=== PATIENT | female | born 1975 | race African-American/Black ===

== ENCOUNTER 2021-12-15 09:44 | Emergency (ER) | payer BC ==
[~2021-12-15] VITALS: Ht 165.1 cm; Wt 81.1 kg
[~2021-12-15 09:44] MED LIST: ACET325T9 PO; CLIN150C16 PO; HYDR-3165 PO; IBUP-1390 PO; SULF1TAB24 PO; TRAM100T10 PO
[2021-12-15] MEDS: IV NORMAL SALINE 1,000ML 1,000 ML IV ONE (10:30)
[2021-12-15] MEDS ORDERED: ASPIRIN CHEWABLE 81 MG TABLET. ONE (10:30)
--- NOTE | 2021-12-15 10:30 | EKG ---
[address] [address] Test Date: 2021-12-15 Test Time: 10:03:08 Pat Name: HOA GEIGER Department: Room: Gender: F Inspector Material Disposition: KERRY : 1975 Requested By: DENISE MOREJON Order Number: [id number] Reading MD: Emmanuel Umanzor Measurements Intervals [place] Rate: 58 P: [place]: QRS: 60 QRSD: 92 T: -4 QT: 426 QTc: 422 Interpretive Statements COMPLETE HEART BLOCK JUNCTIONAL ESCAPE RHYTHM Electronically Signed On 12-16-2021 18:40:29 [employer] by Emmanuel Umanzor
--- NOTE | 2021-12-15 10:32 | PHYS DOC ---
Past History Past Medical History: Fibromyalgia, Other Past Surgical History: Other Smoking: Less than 1pk/day Alcohol Use: Rarely Drug Use: None Adult General Chief Complaint Chief Complaint: CHEST PAIN HPI HPI The patient is a 46-year-old female with a history of hypertension and former tobacco use. She is otherwise healthy. She presents for evaluation of nausea, lightheadedness, shortness of breath and intermittent nonexertional nonpleuritic midsternal chest pain, all with onset upon awakening from sleep this morning. No fevers, upper respiratory congestion/rhinorrhea, cough, sore throat, abdominal pain of any kind, flank pain of any kind, midline back pain, dysuria, hematuria, polyuria or oliguria, changes in bowel habits. Patient is alert and appropriately interactive but ill-appearing, dry heaving upon initial evaluation here in the emergency department. Telemetry monitoring and initial triage EKG demonstrate a pattern of dropped beats consistent with a second-degree type II atrioventricular block. Patient is intermittently bradycardic with this but vital signs are otherwise appropriate. Review of Systems Review of Systems A 12 point review of systems was completed and was negative except where noted in HPI above. Current Medications Current Medications Current Medications Medications (Trade) Dose Ordered Sig/Marcia Start Time Stop Time Status Last Admin Dose Admin Aspirin (Aspirin Chewable) 324 mg 1X ONCE 12/15/21 10:15 12/15/21 10:16 UNV Ondansetron HCl (Zofran) 4 mg 1X ONCE 12/15/21 10:15 12/15/21 10:16 UNV Sodium Chloride 1,000 ml @ 1,000 mls/hr 1X ONCE 12/15/21 10:15 12/15/21 11:14 UNV Allergies Allergies Allergies Coded Allergies Type Severity Reaction Last Updated Verified No Known Drug Allergies 03/27/14 No Physical Exam Physical Exam 46-year-old female appearing nontoxic and in no acute distress. Head is normocephalic and atraumatic. Neck is supple and nontender. Oropharynx is moist. Lungs are clear to auscultation at all stations. There is a normal S1 and S2 without rubs or gallops and capillary refill is appropriate, less than 2 seconds globally. Abdomen is soft, nontender and nondistended. Warm and dry without cyanosis, clubbing or edema. Psychiatrically, the patient demonstrates appropriate mood and affect and is alert. Bilateral upper and lower extremities are neurovascularly intact distally with strength 5 out of 5, sensation intact light touch in all nerve distributions, radial, DP and PT pulses 2+ equal bilaterally, capillary refill less than 2 seconds, hands and feet warm and well- perfused. No dependent peripheral edema distally. No calf tenderness or swe lling bilaterally. Homans test is negative bilaterally. EKG EKG Serial EKGs with sinus rhythm, rate 50s, no acute ST elevation or depression, multiple P waves without accompanying QRS in a pattern suggestive of Mobitz 2 ty pe II atrioventricular block. Radiology/Procedures Radiology/Procedures No acute cardiopulmonary process on plain films of the chest per EP interpretation. Heart Score C/O Chest Pain: Yes Risk Factors: Risk Factors: DM, Current or recent (<one month) smoker, HTN, HLP, family history of CAD, obesity. Risk Scores: Risk Factors: DM, Current or recent (<one month) smoker, HTN, HLP, family history of CAD, obesity. Course & Med Decision Making Course & Med Decision Making Patient with second-degree heart block, Mobitz type II. Symptomatic but hemodynamically stable. Have given a small dose of atropine to speed up pat ient's base rate to help with symptoms. Have given a liter of IV fluids and some aspirin given patient's reported chest discomfort. She is feeling much better after these interventions. Will need transfer to a higher level cardiovascular center. Case discussed with cardiology team at [facility] who recommend transfer to their facility for further evaluation and treatment. Case discussed with Dr. Daniels, hospitalist at [facility] who graciously accepted the patient in transfer to that facility. Stable for transfer. All questions have been answered. Critical care time was 57 minutes. Dragon Disclaimer Dragon Disclaimer This electronic medical record was generated, in whole or in part, using a voice recognition dictation system. Departure Departure: Impression: Primary Impression: Mobitz type 2 second degree atrioventricular block Disposition: [facility] Condition: GUARDED Referrals: SUNITHA WARREN (PCP) DENISE MOREJON MD Dec 15, 2021 10:32
[2021-12-15] MEDS: ONDANSETRON PF 4 MG/2 ML VIAL. IVP ONE ×2 (10:33→15:29)
[2021-12-15 10:41] LABS: BASO # 0.1 x10^3/uL (0.0-0.2); BASO % 1 % (0-3); EOS # 0.1 x10^3/uL (0.0-0.7); EOS % 1 % (0-3); HEMATOCRIT 40.2 % (36.0-47.0); HEMOGLOBIN 13.4 g/dL (12.0-15.5); LYMPH # 1.5 x10^3/uL (1.0-4.8); LYMPH % 17 % (24-48); MEAN CORPUSCULAR HEMOGLOBIN 30 pg (25-35); MEAN CORPUSCULAR HGB CONC 33 g/dL (31-37); MEAN CORPUSCULAR VOLUME 90 fL (79-100); MONO # 0.4 x10^3/uL (0.0-1.1); MONO % 5 % (0-9); NEUT # 6.8 x10^3uL (1.8-7.7); NEUT % 77 % (31-73); PLATELET COUNT 301 x10^3/uL (140-400); RED BLOOD COUNT 4.48 x10^6/uL (3.50-5.40); RED CELL DISTRIBUTION WIDTH 13.4 % (11.5-14.5); WHITE BLOOD COUNT 8.8 x10^3/uL (4.0-11.0)
[2021-12-15] MEDS: ATROPINE 0.5 MG/5 ML DISP.SYRIN. IV ONE ×2 (10:43→12:27)
--- NOTE | 2021-12-15 10:44 | EKG ---
[address] [address] Test Date: 2021-12-15 Test Time: 10:27:11 Pat Name: HOA GEIGER Department: Room: Gender: F Kindergartner: CEDRIC : 1975 Requested By: DENISE MOREJON Order Number: [id number] Reading MD: Emmanuel Umanzor Measurements Intervals [place] Rate: 58 P: [place]: QRS: 61 QRSD: 92 T: 22 QT: 430 QTc: 426 Interpretive Statements COMPLETE HEART JUNCTIONAL ESCAPE RHYTHM Electronically Signed On 12-16-2021 18:39:16 UNLOADER by Emmanuel Umanzor
--- NOTE | 2021-12-15 10:51 | RAD ---
XR CHEST 1V Clinical Indication: Reason: chest pain / Spl. Instructions: / History: Comparison: None. Findings: The cardiomediastinal silhouette is normal. Lungs are clear. There is no pneumothorax. No pleural eff usion is appreciated. No acute bone abnormality. IMPRESSION: No acute cardiopulmonary process. Electronically signed by: Carlos Carlisle MD (12/15/2021 10:48 AM) [id number]
[2021-12-15 11:02] LABS: CALCIUM 9.9 mg/dL (8.5-10.1); CREATININE 0.8 mg/dL (0.6-1.0); POTASSIUM 3.6 mmol/L (3.5-5.1)
[2021-12-15 11:11] LABS: ALBUMIN 3.9 g/dL (3.4-5.0); ALBUMIN/GLOBULIN RATIO 1.1 (1.0-1.7); TOTAL BILIRUBIN 0.4 mg/dL (0.2-1.0); TOTAL PROTEIN 7.5 g/dL (6.4-8.2)
[2021-12-15] MEDS: ASPIRIN CHEWABLE 81 MG TABLET. PO ONE (11:15)
[2021-12-15] MEDS: FAMOTIDINE 20 MG/2 ML VIAL IVP ONE (11:17)
[2021-12-15] MEDS: LIDO:MAALOX 1:1 20 ML SINGLE DOSE. PO ONE (11:22)
[2021-12-15 13:55] VITALS: BP 19/69
--- NOTE | 2021-12-18 10:38 | NUR ---
CALLED PT TO GIVE COVID TEST RESULTS. NO ANSWER. MESSAGE LEFT.
--- NOTE | 2021-12-18 10:46 | NUR ---
PT CALLED BACK FOR COVID RESULTS
== END 2021-12-15 16:40 | disposition short-term general hospital (02) ==
LOC: ER 09:44
DX: I44.1 Atrioventricular block, second degree (principal); R07.2 Precordial pain; I10 Essential (primary) hypertension; M79.7 Fibromyalgia; F17.200 Nicotine dependence, unspecified, uncomplicated; Z20.822 Contact with and (suspected) exposure to COVID-19
CPT/HCPCS: 36415; 71045; 80053; 83880; 84443; 84484; 85025; 85610; 85730; 87426; 93005; 96361; 96374; 96375; 96376; 99285; C9803; J0461; J2405; J3010; J3490; J7030; U0003